=== PATIENT | male | born 1995 | race Caucasian/White ===

== ENCOUNTER 2016-07-26 10:19 | Emergency (ER) | payer OTHER ==
--- NOTE | 2016-08-06 09:41 | ER ---
ADMIT: 07/26/2016 RM/LOC: ER [facility] MR#: [id number] [id number] [place], [place] [id number] YENIFER RAM [address] [place] [id number] Emergency Room Report SEX: M AGE: 21 : 1995 DATE: 07/26/2016 ADDENDUM: CHIEF COMPLAINT: Vomiting. HISTORY OF PRESENT ILLNESS: This is a 21-year-old, who has known gastrointestinal issues for a big portion of his life. He has had a cholecystectomy, appendectomy, and also has had colonoscopies due to these issues. COURSE IN THE EMERGENCY ROOM: I gave him 2 L of normal saline, 8 mg of Zofran, morphine titrated for pain. When I was going to discharge him, he did complain that he had a couple tick bites. He was just recently in [place]. He had pulled a tick off on Thursday and that is when all the symptoms started. I am testing him for a few tick-borne illnesses that are in [place] including [place] spotted fever, ehrlichiosis, Lyme disease, tularemia, [place] virus, and [place] virus. I am sending him home on doxycycline for 14 days, having him push fluids. I am also sending him home with Zofran for nausea. I told him to return the ER if he has any further issues. He will follow up with Dr. [place], as city call if symptoms worsen in the middle of the week. IMPRESSION: 1. Vomiting and dehydration. 2. Tick bites from [place]. JOSE D Villegas / Sebastian Muñoz MD / ester JOB #: [id number] CC: Sebastian Muñoz MD, Attending Physician
== END 2016-07-26 15:01 | disposition home or self-care (01) ==
LOC: ER 10:19
DX: E86.0 Dehydration (principal); R11.10 Vomiting, unspecified; Z90.49 Acquired absence of other specified parts of digestive tract; Z90.89 Acquired absence of other organs